=== PATIENT | male | born 1970 | race Caucasian/White ===

== ENCOUNTER 2021-06-21 16:46 | Emergency (ER) | payer SELFPAY ==
[2021-06-21 17:45] LABS: HEMOGLOBIN 13.2 gm/dl (14.0-17.5); RED BLOOD COUNT 4.14 M/UL (4.20-5.50); WHITE BLOOD COUNT 3.5 K/UL (4.5-11.0)
[2021-06-21 18:04] LABS: BUN/CREATININE RATIO 20 (0-10)
[2021-06-21] MEDS ORDERED: HYDROCODON-ACE1 EAC2 PO (19:54)
== END 2021-06-21 20:23 | disposition home or self-care (01) ==
LOC: ER1 16:46
PROVIDERS: Emergency Medicine
DX: S22.050A Wedge compression fracture of T5-T6 vertebra, initial encounter for closed fracture (principal); S93.402A Sprain of unspecified ligament of left ankle, initial encounter; R16.1 Splenomegaly, not elsewhere classified; D69.6 Thrombocytopenia, unspecified; F17.200 Nicotine dependence, unspecified, uncomplicated; W19.XXXA Unspecified fall, initial encounter
CPT/HCPCS: 71260; 73590; 73610; 73630; 80053; 85025; 96374; 96375; 99284; J2270; J2405; Q9967